=== PATIENT | female | born 1950 | race Caucasian/White ===

== ENCOUNTER 2019-11-11 08:05 | Outpatient (CLI) | payer MEDICARE, OTHER ==
[~2019-11-11] VITALS: Ht 172.7 cm; Wt 108.7 kg
--- NOTE | ~2019-11-11 | HEMODYNAMI ---
PATIENT:PRETTY BLAKE MEDICAL RECORD: [id number] : 52 LOCATION:[facility] ADMISSION DATE: 11/11/19 Generatedon:11/11/201910:53 Patient name: PRETTY BLAKE Patient #: [id number] SSN: : 1950 Date of study: 11/11/2019 Page: Of Hemodynamic Procedure Report Patient Data Patient Demographics Procedure consent was obtained First Name: PRETTY Gender: Female Last Name: HAYDEN : 1950 Middle Initial: B Age: 68 year(s) Patient #: [id number] Race: Unknown Additional ID: [id number] Contact details [address]: [address] [place] [address] [address] State: [place] City: [place] Zip code: [address] Past Medical History Allergies: No known allergies Admission Admission Data Admission Date: 11/11/2019 Admission Time: 8:05 Height (in.): 67.72 BSA: 2.2 (m2) Height (cm.): 172 BMI: 36.84 (kg/m2) Weight (lbs.): 240.31 Weight (kg.): 109 Lab Results Lab Result Date: 11/11/2019 Lab Result Time: 0:00 Biochemistry Name Units Result Min Max BUN mg/dl 9 --(*---)-- 7 18 Creatinine mg/dl 0.6 --(*---)-- 0.6 1.3 CBC Name Units Result Min Max Hematocrit % 41.8 -*(----)-- 42 54 Hemoglobin g/dl 13.8 --(*---)-- 13.5 17.5 Procedure Procedure Types Cath Procedure Diagnostic Procedure LHC Cardioversion External Procedure Description Procedure Date Procedure Date: 11/11/2019 Procedure Start Time: 10:41 Procedure End Time: 10:51 Procedure Staff Name Function Jovani Trejo MD Performing Physician Genoveva Russell RT Monitor Jan Kelley RN Nurse John Engle CRNA Additional personnel Procedure Data Cath Procedure Fluoroscopy Diagnostic fluoroscopy Total fluoroscopy Time: 0 time: 0 min min Diagnostic fluoroscopy Total fluoroscopy dose: 0 dose: 0 mGy mGy Estimated blood loss: 0 ml Procedure Complications No complications Hemodynamics Rest BSA: 2.2 (m2) O2 Consumption: Estimated: 245.16 (ml/min) O2 Consumption indexed: Estimated:111.44 (ml/min/m) Heart Rate: 119 (bpm) Snapshots Pre Cath Intra NCS Post Cath Vital Signs Time Heart Resp SPO2 etCO2 NIBP (mmHg) Rhythm Pain Sedation Rate (ipm) (%) (mmHg) Status Level (bpm) 10:26:47 131 13 96 0 Measuring NSR (Missing) 10(A) 10:26:54 135 11 96 0 146/115(132) NSR (Missing) 10(A) 10:31:01 112 10 97 32.2 145/106(123) NSR (Missing) 10(A) 10:35:38 118 11 97 32.1 141/103(119) NSR (Missing) 10(A) 10:39:41 126 10 96 32.2 152/101(132) NSR (Missing) 10(A) 10:44:20 79 37 83 20.9 116/78(95) NSR (Missing) 10(A) 10:48:24 77 25 78 22.4 103/71(77) NSR (Missing) 10(A) Procedure Log Time Note 9:55:07 Informed consent obtained and on chart 9:56:29 H&P Date Dictated: 10/20/2019 Within 30 days and on chart., H&P Addendum completed by physician on day of procedure. (MUST COMPLETE FOR ALL OUTPATIENTS). 9:56:35 Patient allergic to No known allergies 10:02:28 Procedure Status Cardioversion. 10:02:30 Time tracking: Regular hours (M-F 7:00 - 5:00) 10:02:34 Plan of Care:Hemodynamics will remain stable., Cardiac rhythm will remain stable., Comfort level will be maintained., Respiratory function will remain adequate., Patient/ family verbilizes understanding of procedure., Procedure tolerated without complication., Recovers from procedure without complications.. 10:05:20 Lab Result : BUN 9 mg/dl 10:05:20 Lab Result : Creatinine 0.6 mg/dl 10:05:20 Lab Result : Hemoglobin 13.8 g/dl 10:05:20 Lab Result : Hematocrit 41.8 % 10:05:29 Patient Weight : 240.31 lbs 10:05:32 Patient Height : 67.72 inches 10:08:22 Genoveva Russell RT(R) sent for patient. Start room use. 10:20:56 Patient arrived from Pre/Post Procedure Room to CCL 3. Patient remains on bed/stretcher for procedure. 10:20:57 Warm blankets applied, and jose hugger turned on for patient comfort. 10:20:57 Correct patient and procedure confirmed by team. 10:20:57 ECG and BP/O2 sat monitors applied to patient. 10:23:29 John Engle CRNA present and monitoring patient for TIVA. 10:24:57 Vital chart was started 10:24:58 Baseline sample Acquired. 10:25:21 Rhythm: atrial fibrillation 10:25:22 Full Disclosure recording started 10:25:23 Pre-procedure instructions explained to patient. 10:25:23 Pre-op teaching completed and patient verbalized understanding. 10:25:25 Family in patients room. 10:25:26 Patient NPO since Midnight. 10:25:28 Is patient on blood thinner?Yes 10:25:31 ACC The patient was administered the following blood thiners within the last 24 hours: Eliquis 10:25:32 Patient diabetic? Yes. 10:25:33 If diabetic: On Metformin? Yes 10:25:35 If on Metformin: Last Dose? 11/10/2019 10:25:38 Previous problem with sedation/anesthesia? No ? 10:25:39 Snore? Yes 10:25:41 Sleep apnea? No 10:25:42 Deviated septum? No 10:25:43 Opens mouth fully? Yes 10:25:44 Sticks out tongue? Yes 10:25:45 Airway obstruction? No ? 10:25:48 Dentures? No ? 10:26:29 IV patent on arrival in right hand with 0.9% NaCl at [facility]. 10:26:31 Lab results completed and on chart. 10:26:35 Alarms reviewed by Maria Eugenia Pascual 10:26:41 Quick Combo opened to sterile field. 10:39:41 --------ALL STOP TIME OUT------ 10:39:42 Final Timeout: patient, procedure, and site verified with staff and physician. All members of the team are in agreement. 10:39:54 Physical assessment completed. ASA score P 2 - A patient with mild systemic disease as per Jovani Terjo MD. 10:39:57 Sedation plan: TIVA Medication:Propofol 10:41:20 Procedure started. 10:41:22 ------Cardioversion------ 10:42:06 Quick combo pads placed on patients chest and back. 10:43:09 Defibrillator synced and charged to 200 Joules. 10:43:19 Shock delivered. 10:43:41 Patient cardioverted to sinus rhythm . 10:44:04 Procedure ended.(Physican Out) 10:44:12 Fluoroscopy time 00.00 minutes. 10:44:16 Flurop Dose total: 0 10:44:16 Fluoroscopy dose: 0 mGy 10:44:18 Dose Area Product 0 mGy/cm. 10:44:34 Post-procedure physical assessment completed. ASA score P 2 - A patient with mild systemic disease as per Jovani Trejo MD. 10:44:37 Post procedure rhythm: sinus rhythm 10:44:40 Estimated blood loss: 0 ml 10:44:41 Post procedure instruction explained to patient.Patient verbalizes understanding. 10:44:41 Patient needs reinforcement of post procedure teaching. 10:44:57 Procedure and supply charges have been captured, reviewed, submitted and are correct. 10:44:59 Procedure Complication : No complications 10:45:03 Operative report dictated upon procedure completion. 10:45:03 See physician's report for complete and final results. 10:45:43 Report given to Pre/Post Procedure Room. 10:45:44 Patient transfered to Pre/Post Procedure Room with Bed. 10:51:30 Vital chart was stopped 10:51:32 Procedure ended. 10:51:32 Full Disclosure recording stopped 10:51:36 End room use (Document Last) 10:51:53 End room use (Document Last) 10:52:20 End room use (Document Last) Device Usage Item Manufacture Quantity Catalog Hospital Part Current Minimal Lot# / Name Number Charge Number Stock Stock Lashay narayan# Code Linchpin 1 [id number] Combo Signature Audit [place] Stage Time Signature Unsigned Intra-Procedure 11/11/2019 Genoveva Russell 10:51:53 AM RT(R) Intra-Procedure 11/11/2019 Jan Kelley 10:52:20 AM RN Intra-Procedure 11/11/2019 Jovani Trejo MD 10:53:11 AM [place] [id number] [place] [address]
[2019-11-11] MEDS ORDERED: GLUCOPHAGE500 MG PO (08:34)
[2019-11-11] MEDS ORDERED: BETAPACE 80 MG80 MG PO (08:34)
[2019-11-11] MEDS ORDERED: CRESTOR10 MG PO (08:35)
[2019-11-11] MEDS ORDERED: NORVASC10 MG PO (08:35)
[2019-11-11] MEDS ORDERED: OMEPRAZOLE20 M1 PO (08:35)
[2019-11-11] MEDS ORDERED: MULTI-DAY VITAM1 TAB PO (08:35)
[2019-11-11] MEDS ORDERED: VITAMIN E200 UNI1 PO (08:36)
[2019-11-11] MEDS ORDERED: VITAMIN D1000 UNIT PO (08:37)
[2019-11-11] MEDS ORDERED: CO Q-10400 MG PO (08:37)
[2019-11-11 08:58] VITALS: BP 128/88; Ht 172.7 cm; Wt 108.7 kg
[2019-11-11 09:19] LABS: BASOPHILS 0.2 % (0-2); EOSINOPHILS 2.1 % (0-7); HEMATOCRIT 41.8 % (36.0-48.0); HEMOGLOBIN 13.8 g/dL (12-16); IMMATURE GRANULOCYTES 0.3 % (0-5); LYMPHOCYTES 30.8 % (15-50); MCV 87.8 fL (80.0-100.0); MEAN PLATELET VOLUME 10.3 fL (7.4-10.4); MONOCYTES 10.6 % (2-11); PLATELET COUNT 233 10x3/uL (130-400); RBC 4.76 10x6/uL (4.00-5.40); RDW 12.7 % (11.5-14.5); WBC 6.2 10x3/uL (4.8-10.8)
[2019-11-11 09:23] LABS: INR 1.14 (0.85-1.17); PROTIME 14.6 SECONDS (11.6-15.0)
[2019-11-11 09:25] LABS: CALC OSMOLALITY 283 mosm/kg (275-300); CARBON DIOXIDE 23.8 mmol/L (21.0-32.0); CHLORIDE - SERUM 107 mmol/L (98-107); CREATININE - SERUM 0.6 mg/dL (0.6-1.3); GLUCOSE 199 mg/dL (74-106); SODIUM 140 mmol/L (136-145); UREA NITROGEN 9 mg/dL (7-18); eGFR NON AFRICAN AMERICAN > 90 mL/min (90-120)
--- NOTE | 2019-11-11 11:00 | NUR ---
PT REC'D TO ROOM 5 VIA STRETCHER FROM [facility]. MONITORS ESTAB. DAUGHTER AT BS - DR. LUND IN ROOM TO UPDATE PT AND DAUGHTER. SEE CENTERLESS GRINDER SET UP OPERATOR. ALARMS ON AND C/L IN REACH.
[2019-11-11] MEDS ORDERED: ELIQUIS5 MG PO (11:15)
--- NOTE | 2019-11-11 11:15 | NUR ---
CM - NSR, NO ECTOPY NOTED, HR 69. PT DENIES PAIN OR NEEDS
--- NOTE | 2019-11-11 11:45 | NUR ---
CM - SR, HR 69. B/P 134/79.. PIV D/C'D INTACT, DSG APPLIED. ALL DISCHARGE INSTRUCTIONS REVIEWED WITH PT AND DAUGHTER - UNDERSTANDING VERBALIZED. PT ALLOWED UP TO GET DRESSED AND GO TO BR INDEPENDENTLY.
--- NOTE | 2019-11-11 11:55 | NUR ---
SPOKE WITH CHIKA AT DR LUND'S OFFICE. THERE WILL BE ELIQUIS SAMPLES FOR HER TO ENTERPRISE RECORDS ANALYST.
--- NOTE | 2019-11-11 12:05 | NUR ---
PT D/C'D VIA WC TO PRIVATE VEHICLE WITH ALL PAPER WORK AND BELONGINGS.
== END 2019-11-11 12:05 | disposition home or self-care (01) ==
LOC: D.CATH 08:05
PROVIDERS: ATTEND Internal Medicine Cardiovascular Disease
DX: I48.91 Unspecified atrial fibrillation (principal); I10 Essential (primary) hypertension; I49.9 Cardiac arrhythmia, unspecified